=== PATIENT | male | born 1940 | race Hispanic/Latino ===

== ENCOUNTER → 2018-12-26 | Outpatient (CLI) | payer MEDICARE ==
--- NOTE | 2018-12-26 11:03 | Diagnostic Imaging Report ---
EXAMINATION: Renal ultrasound. CLINICAL HISTORY :Chronic kidney disease stage II COMPARISON: <None available.> TECHNIQUE: Grayscale and color Doppler evaluation of the kidneys and bladder was performed in transverse and longitudinal planes. DISCUSSION: RIGHT KIDNEY: The right kidney measures 9.5 cm in length and shows increased renal cortical echogenicity. No hydronephrosis, shadowing calculi or solid mass lesions. LEFT KIDNEY: The left kidney measures 11.2 cm in length and shows increased renal cortical echogenicity. No hydronephrosis, shadowing calculi or solid mass lesions. BLADDER: Unremarkable. Right and left ureteral jets are identified. Estimated post void residual volume 19 cc. IMPRESSION: 1. Increased renal cortical echogenicity compatible with medical renal disease. 2. No significant post void residual in the urinary bladder. Signed by: Dr. Kodi St M.D. on 12/26/2018 11:00 AM
== END ==
LOC: US 09:42
PROVIDERS: ATTEND Internal Medicine Nephrology
DX: N18.2 Chronic kidney disease, stage 2 (mild) (principal)
CPT/HCPCS: 76770; 76857

== ENCOUNTER → 2019-04-08 | Outpatient (CLI) | payer MEDICARE ==
--- NOTE | 2019-04-08 15:44 | Diagnostic Imaging Report ---
EXAMINATION: CHEST 2 VIEWS INDICATION: Pre-procedural radiograph. COMPARISON: None FINDINGS: TUBES and LINES: None. LUNGS: Lungs are not well inflated. There is no evidence of pneumonia or pulmonary edema. Minimal dependent atelectasis. PLEURA: No pleural effusion or pneumothorax. HEART AND MEDIASTINUM: The cardiomediastinal silhouette is unremarkable. Post-surgical changes. BONES AND SOFT TISSUES: Possible mild age indeterminate loss of vertebral body height in a lower thoracic vertebral body. Status post median sternotomy. UPPER ABDOMEN: No free air under the diaphragm. IMPRESSION: No evidence of pneumonia or pulmonary edema. Possible mild age indeterminate loss of vertebral body height in a lower thoracic vertebral body. Signed by: Dr. Ester Guerrier MD on 04/08/2019 3:40 PM
== END ==
LOC: RAD 14:11
PROVIDERS: ATTEND Internal Medicine
DX: Z01.818 Encounter for other preprocedural examination (principal)
CPT/HCPCS: 71046; 93005

== ENCOUNTER → 2020-08-27 | Outpatient (CLI) | payer MEDICARE | LOC: CARD 09:56 | PROVIDERS: ATTEND Internal Medicine | DX: I25.10 Atherosclerotic heart disease of native coronary artery without angina pectoris (principal) | CPT/HCPCS: 93925 ==

== ENCOUNTER → 2023-03-27 | Outpatient (CLI) | payer MEDICARE ==
[~2023-03-27] MED LIST: IOPAMIDOL 370 MG/ML 100 ML INFUS..BTL INJ ONE; METOPROLOL TARTRATE INJ 1 MG/ML VIAL ONE; NITROGLYCERIN 0.4 MG SUBL ONE; SODIUM CHLORIDE 0.9% 100 ML ONE
[2023-03-27 08:36] LABS: CREATININE, SERUM 1.12 mg/dL (0.72-1.25)
== END ==
LOC: CT 07:16
PROVIDERS: ATTEND Internal Medicine Cardiovascular Disease
DX: I10 Essential (primary) hypertension (principal); E08.9 Diabetes mellitus due to underlying condition without complications; E78.5 Hyperlipidemia, unspecified; I25.10 Atherosclerotic heart disease of native coronary artery without angina pectoris
CPT/HCPCS: 36415; 75574; 82565; 84520; J7050; Q9967

== ENCOUNTER → 2024-05-14 | Day surgery (SDC) | payer MEDICARE ==
[2024-05-09 14:42] LABS: BASOPHILS % 0.3 % (0.0-1.0); EOSINOPHILS # (AUTO) 0.1 (0.0-0.4); EOSINOPHILS % 1.2 % (0.0-6.0); HEMOGLOBIN 10.6 g/dL (14.0-18.0); LYMPHOCYTES % 34.1 % (18.0-39.1); MEAN CORPUSCULAR HEMOGLOBIN 30.9 pg (28-32); MEAN CORPUSCULAR HGB CONC 32.1 g/dL (31-35); MEAN CORPUSCULAR VOLUME 96.2 fL (81-99); MONOCYTES # (AUTO) 0.5 (0.2-0.8); MONOCYTES % 8.5 % (4.4-11.3); NEUTROPHILS # (AUTO) 3.2 (2.1-6.9); NEUTROPHILS % 55.7 % (38.7-80.0); PLATELET COUNT 144 x10e3/uL (140-360); RED BLOOD COUNT 3.43 x10e6/uL (4.3-5.7); RED CELL DISTRIBUTION WIDTH 13.2 % (11.7-14.4); WHITE BLOOD COUNT 5.78 x10e3/uL (4.8-10.8)
[~2024-05-14] MED LIST changes: +ASPIRIN81 MG PO; +ATORVASTATIN CA20 MG PO; +CARVEDILOL3.125 MG PO; +ENTRESTO 24 MG1 EACH PO; +FENTANYL CITRATE/PF 100MCG/2 ML INJ ONE; +GLIMEPIRIDE2 MG PO; -IOPAMIDOL 370 MG/ML 100 ML INFUS..BTL INJ ONE; +JANUVIA100 MG PO; +LASIX10 MG/ML PO; +LASIX20 MG PO; +LEVOTHYROXINE50 MCG PO; -METOPROLOL TARTRATE INJ 1 MG/ML VIAL ONE; -NITROGLYCERIN 0.4 MG SUBL ONE; +ONE A DAY MENS PO; +PLAVIX75 MG PO; -SODIUM CHLORIDE 0.9% 100 ML ONE; +SPIRONOLACTONE25 MG PO; +VITAMIN D3250 MCG PO
[2024-05-14] MEDS: LACTATED RINGER'S 1,000 ML ONE (09:09)
[2024-05-14] MEDS: DEXTROSE 5% 250ML 250 ML IV ONE (09:10)
[2024-05-14 09:20] VITALS: TEMP 97.1
[2024-05-14 09:50] VITALS: BP 127/63; PULSE 66; RESP 17; O2SAT 98
== END | disposition home or self-care (01) ==
LOC: OR 07:45
PROVIDERS: ATTEND Internal Medicine Gastroenterology
DX: K29.70 Gastritis, unspecified, without bleeding (principal); K22.70 Barrett's esophagus without dysplasia; K44.9 Diaphragmatic hernia without obstruction or gangrene; D64.9 Anemia, unspecified; E11.22 Type 2 diabetes mellitus with diabetic chronic kidney disease; I12.9 Hypertensive chronic kidney disease with stage 1 through stage 4 chronic kidney disease, or unspecified chronic kidney disease; N18.9 Chronic kidney disease, unspecified; I25.10 Atherosclerotic heart disease of native coronary artery without angina pectoris; I25.2 Old myocardial infarction; E78.5 Hyperlipidemia, unspecified; E03.9 Hypothyroidism, unspecified; Z01.810 Encounter for preprocedural cardiovascular examination; Z01.812 Encounter for preprocedural laboratory examination; Z79.02 Long term (current) use of antithrombotics/antiplatelets; Z79.82 Long term (current) use of aspirin; Z79.84 Long term (current) use of oral hypoglycemic drugs; Z79.899 Other long term (current) drug therapy; Z95.5 Presence of coronary angioplasty implant and graft
CPT/HCPCS: 36415; 43239; 85025; 93005; C9113; J3010; J7070; J7121